=== PATIENT | female | born 1960 | race Caucasian/White ===

== ENCOUNTER → 2019-12-21 | Day surgery (SDC) | payer MEDICARE, OTHER ==
[~2019-12-21] MED LIST: ATROPINE SULFATE 1 MG/ML VIAL ONE; DEXMEDETOMIDINE HCL 200 MCG/2 ML VIAL ONE; ETOMIDATE 2 MG/ML 10 ML INJ IV ONE; FENTANYL CITRATE/PF 100MCG/2 ML INJ ONE; LIDOCAINE HCL 2% LOCAL INJ 5 ML SDV VIAL INJ ONE; METOCLOPRAMIDE HCL 10 MG/2ML VIAL ONE; METOCLOPRAMIDE10 MG PO; MIDAZOLAM HCL 2 MG/2 ML VIAL ONE; PANTOPRAZOLE 40 MG 10ML VIAL ONE; PROPOFOL IV EMULSION 10 MG/ML 20 ML VIAL ONE; [UNRECOGNIZED DRUG - OTHER] PO
[2019-12-21 15:20] VITALS: BP 133/66
--- NOTE | 2019-12-21 21:46 | Operative Report ---
DATE OF PROCEDURE: 12/21/2019 SURGEON: Aniceto Da Silva MD PROCEDURE: An EGD with biopsies and pyloric channel dilatation as well as esophageal dilatation. INDICATION FOR EGD: Dysphagia, heartburn, acid reflux. MEDICATIONS: The patient was done under MAC. Please see anesthesiologist's note. PROCEDURE IN DETAIL: With the patient in left lateral decubitus position, a flexible fiberoptic Olympus gastroscope was introduced into the esophagus under direct visualization without any difficulty. There was some patchy erythema noted in the distal esophagus. The GE junction was nodular and was biopsied. The scope was then advanced with ease into the stomach. Mucosa overlying the antrum and the body revealed some patchy erythema and [id number] edema, and biopsies were obtained sent to stain for H. pylori. There was a mild pyloric channel stricture noted and that was dilated to size 20 mm per TTS balloon dilators. The scope was then advanced with ease all the way to the second portion of the duodenum. The scope was then withdrawn slowly. Biopsies were obtained from the proximal second portion and the duodenal bulb to rule out sprue. The scope was then withdrawn back into the stomach and retroflexed mucosa overlying the fundus and cardia appeared to be within normal limits. The scope was then straightened out. It was subsequently withdrawn. The esophagus was then dilated to size 52-[place] [employer]. The patient tolerated procedure well. IMPRESSION: 1. Distal esophagitis, mild. 2. Nodular GE junction, biopsied. 3. Esophagus dilated to size 52-[place]. 4. Gastritis, biopsied and biopsies sent to stain for Helicobacter pylori. 5. The pyloric channel stricture dilated to size 20 mm per TTS balloon dilators. 6. Rule out sprue. PLAN: Follow up histology. Initiate Protonix 40 mg one p.o. q.a.m. a.c. Aniceot Da Silva MD [facility] [place] /[id number] cc: Lele Acosta DO
== END | disposition home or self-care (01) ==
LOC: ENDO 10:44
PROVIDERS: ATTEND Internal Medicine Gastroenterology
DX: K20.9 Esophagitis, unspecified (principal); K29.70 Gastritis, unspecified, without bleeding; K31.1 Adult hypertrophic pyloric stenosis; K21.9 Gastro-esophageal reflux disease without esophagitis; K59.09 Other constipation; R53.1 Weakness; R27.0 Ataxia, unspecified; N39.0 Urinary tract infection, site not specified; Z01.810 Encounter for preprocedural cardiovascular examination; Z01.812 Encounter for preprocedural laboratory examination; Z11.59 Encounter for screening for other viral diseases; Z85.828 Personal history of other malignant neoplasm of skin; Z99.3 Dependence on wheelchair
CPT/HCPCS: 43239; 43245; 43450; 87635; 93005; C1726; C9113; J0461; J2001; J2250; J2704; J2765; J3010; 43233